=== PATIENT | male | born 1995 | race African-American/Black ===

== ENCOUNTER 2018-11-27 13:39 | Emergency (ER) | payer SELFPAY | END 2018-11-27 17:49 | disposition left against medical advice (07) | LOC: ER 13:39 | DX: Z53.21 Procedure and treatment not carried out due to patient leaving prior to being seen by health care provider (principal) ==

== ENCOUNTER 2021-01-09 15:34 | Emergency (ER) | payer OTHER ==
[~2021-01-09] VITALS: Ht 177.8 cm; Wt 127.0 kg
[2021-01-09 15:49] VITALS: BP 133/57
[2021-01-09] MEDS ORDERED: TESTOSTERONE BLOCKER (15:53)
[2021-01-09] MEDS ORDERED: HORMONE REPLACEMENT (15:53)
[2021-01-09] MEDS ORDERED: HYDROCODONE/ACETAMINOPHEN 5/325MG TABLET PO ONE (16:30)
[2021-01-09] MEDS ORDERED: VISCOUS LIDOCAINE 2% 15 ML UDC MM SCH ×2 (16:30→18:00)
[2021-01-09] MEDS ORDERED: CHLO473M3 MT (18:26)
[2021-01-09] MEDS ORDERED: CLIN300C12 MT (18:26)
[2021-01-09] MEDS ORDERED: HYDR-4001 MT (18:27)
== END 2021-01-09 18:46 | disposition home or self-care (01) ==
LOC: ER 15:34
DX: K04.7 Periapical abscess without sinus (principal)
CPT/HCPCS: 99283